=== PATIENT | male | born 1995 | race Two or more races ===

== ENCOUNTER 2016-09-17 07:15 | Emergency (ER) | payer OTHER ==
--- NOTE | 2016-09-17 07:44 | ER Document Report ---
ED GI/ - General Mode of Arrival: Ambulatory Information source: Patient TRAVEL OUTSIDE OF THE [place] IN LAST 30 DAYS: No - HPI Patient complains to provider of: Testicular pain Onset: Other - 2-3 days ago Context: Lifting Associated symptoms: Other - see notes above - General Chief Complaint: Testicular Pain Stated Complaint: TESTICAL PAIN Time Seen by Provider: 09/17/16 07:39 Notes: 21 year old male with no history of testicular problems presents to the ED complaining of testicular pain that started 2-3 days ago. Patient reports that he recently started working out after 1 year away and states that he was squatting a few days ago prior to the pain starting. He states that there was no discomfort or pain while squatting, but developed pain later in the day. Patient reports the pain is exacerbated with walking. Patient is concerned he has a hernia. Patient denies burning with urination or hematuria, but states his testicles look swollen. (MIHAI WOODWARD) - Related Data Allergies/Adverse Reactions: No Known Allergies Allergy (Verified 09/17/16 07:31) Past Medical History - General Information source: Patient - Social History Smoking Status: Unknown if Ever Smoked Family History: Reviewed & Not Pertinent Patient has suicidal ideation: No Patient has homicidal ideation: No Renal/ Medical History: Denies: Hx Peritoneal Dialysis Surgical Hx: Negative - Immunizations Hx Diphtheria, Pertussis, Tetanus Vaccination: No Review of Systems - Review of Systems Constitutional: No symptoms reported EENT: No symptoms reported Cardiovascular: No symptoms reported Respiratory: No symptoms reported Gastrointestinal: No symptoms reported Genitourinary: No symptoms reported. denies: Burning, Dysuria, Hematuria Male Genitourinary: See HPI, Testicular pain Musculoskeletal: No symptoms reported Skin: No symptoms reported Hematologic/Lymphatic: No symptoms reported Neurological/Psychological: No symptoms reported -: Yes All other systems reviewed and negative Physical Exam - General General appearance: Alert In distress: None - HEENT Head: Normocephalic, Atraumatic Eyes: Normal Extraocular movements intact: Yes Pupils: PERRL - Respiratory Respiratory status: No respiratory distress Breath sounds: Normal - Cardiovascular Rhythm: Regular Heart sounds: Normal auscultation - Abdominal Inspection: Normal Distension: No distension Tenderness: Nontender - Genitourinary Tenderness: Testicle tender - left testicle is tender to palpate, Other - Back Back: Normal - Extremities General upper extremity: Normal inspection, Normal ROM General lower extremity: Normal inspection, Normal ROM, Normal weight bearing - Neurological Neuro grossly intact: Yes Cognition: Normal Orientation: AAOx4 Priya Coma Scale Eye Opening: Spontaneous Central Coma Scale Verbal: Oriented Central Coma Scale Motor: Obeys Commands Central Coma Scale Total: 15 Speech: Normal - Psychological Associated symptoms: Normal affect, Normal mood - Skin Skin Temperature: Warm Skin Moisture: Dry Skin Color: Normal - Vital signs Vitals: Temp Pulse Resp BP Pulse Ox 98.7 F 84 16 130/76 H 100 09/17/16 07:33 09/17/16 07:33 09/17/16 07:33 09/17/16 07:33 09/17/16 07:33 - Genitourinary Notes: no obvious mass or hernia is palpated. (MIHAI WOODWARD) Discharge - Discharge Clinical Impression: Epididymitis, testicular mass Condition: Stable Disposition: HOME, SELF-CARE Instructions: Epididymitis ([facility]) Prescriptions: Doxycycline Hyclate 100 mg PO BID #14 capsule Hydrocodone/Acetaminophen [[place] 5-325 mg Tablet] 1 tab PO QID PRN #12 tablet PRN Reason: Referrals: [facility] [Provider Group] (Call for an appointment today to be seen in follow-up in 2-3 days I have also given your primary care physician a call for follow-up in 2-3 days return to the emergency department sooner for increasing worsening or new symptoms) [facility] [Provider Group] - Follow up in 3-5 days Scribe Attestation: 09/17/16 11:21 I personally performed the services described in the documentation reviewed the documentation recorded by my scribe in my presence and it accurately and completely records my words and actions (EDER LLOYD) Scribe Documentation - Scribe Written by Eugenia:: Eugenia Caceres, 09/17/2016 [id number] acting as scribe for :: Greg
[2016-09-17] MEDS ORDERED: OXYCODONE-ACETAMINOPHEN 5-325 MG TABLET PO ONE (11:29)
[2016-09-17 11:53] VITALS: BP 135/79
== END 2016-09-17 11:54 | disposition home or self-care (01) ==
LOC: ER 07:15
DX: N45.1 Epididymitis (principal); N50.89 Other specified disorders of the male genital organs
CPT/HCPCS: 76870; 93976; 99284

== ENCOUNTER 2019-02-23 03:16 | Emergency (ER) | payer MEDICAID, OTHER ==
[2019-02-23] MEDS ORDERED: LIDOCAINE 1% INJ-PF (10 MG/ML) 30 ML SDV INJ ONE (05:55)
--- NOTE | 2019-02-23 05:57 | ER Document Report ---
HPI - HPI Time Seen by Provider: 02/23/19 05:48 Pain Level: 2 Context: Patient is a 23-year-old male that comes to the emergency department for chief complaint of tenderness to the top right buttock area. He states the area looks red and swollen. This is been worsening over the past 2 days. Patient states he has had this 3 times before and it has always drained on its own or with squeezing in the past but it was not draining this time. He denies fever/chills, nausea/vomiting, denies any other complaints. He denies any daily medications, denies IV drug abuse, denies any past medical history otherwise. Past Medical History - General Information source: Patient - Social History Smoking Status: Current Every Day Smoker Frequency of alcohol use: None Drug Abuse: None Lives with: Family Family History: Reviewed & Not Pertinent Patient has suicidal ideation: No Patient has homicidal ideation: No Pulmonary Medical History: Reports: Hx Asthma Renal/ Medical History: Denies: Hx Peritoneal Dialysis Surgical Hx: Negative - Immunizations Immunizations up to date: Yes Hx Diphtheria, Pertussis, Tetanus Vaccination: Yes Vertical Provider Document - CONSTITUTIONAL General Appearance: WD/WN, No Apparent Distress - INFECTION CONTROL TRAVEL OUTSIDE OF THE [place] IN LAST 30 DAYS: No - HEENT HEENT: Atraumatic, Normocephalic - NECK Neck: Normal Inspection - RESPIRATORY Respiratory: Breath Sounds Normal, No Respiratory Distress - CARDIOVASCULAR Cardiovascular: Regular Rate, Regular Rhythm - GI/ABDOMEN Gastrointestinal: Abdomen Soft, Abdomen Non-Tender - REPRODUCTIVE Male Genitalia: Normal Inspection - BACK Back: Normal Inspection - MUSCULOSKELETAL/EXTREMETIES Musculoskeletal/Extremeties: MAEW, FROM, Non-Tender - NEURO Level of Consciousness: Awake, Alert, Appropriate - DERM Integumentary: Warm, Dry, Abscess - Right sided pilonidal cyst abscess with indurated area and a fluctuant head. negative: Rash Course - Re-evaluation Re-evalutation: Patient with obvious pilonidal cyst abscess. This was cleaned, drained, patient placed on antibiotics. Discussed the care, surgical clinic follow-up, return precautions. Patient states understanding. - Vital Signs Vital signs: Temp Pulse Resp BP Pulse Ox 98.8 F 92 14 113/62 100 02/23/19 03:22 02/23/19 03:22 02/23/19 03:22 02/23/19 03:22 02/23/19 03:22 Procedures - Incision and Drainage Right upper gluteal cleft Type: Simple Anesthetic type: 1% Lidocaine mL's of anesthetic: 6 Blade size: 11 I&D procedure: Shurclens applied, Sterile dressing applied Incision Method: Incision made by scalpel Amount/type of drainage: Moderate amount of mixed bloody purulent drainage Discharge - Discharge Clinical Impression: Abscess Condition: Stable Disposition: HOME, SELF-CARE Additional Instructions: Your evaluation showed a pilonidal cyst abscess. This was opened and drained. Take antibiotics as prescribed to completion. Keep the area clean, clean with soap and water, keep absorbing dressing over the area. This can recur, if it does follow-up with the listed referral at the surgical clinic to have this managed definitively. Return if you worsen including developing/spreading redness, fever/chills, or any other concerning or worsening symptoms. Prescriptions: Sulfamethoxazole/Trimethoprim [Bactrim Ds Tablet] 1 each PO BID #14 tablet Referrals: [facility] [Provider Group] - Follow up as needed
[2019-02-23] MEDS ORDERED: SULFAMETHOXAZOLE/TRIMETHOPRIM 800-160 MG TABLET PO ONE (06:37)
[2019-02-23 06:45] VITALS: BP 110/73
== END 2019-02-23 06:50 | disposition home or self-care (01) ==
LOC: ER 03:16
DX: L05.01 Pilonidal cyst with abscess (principal); J45.909 Unspecified asthma, uncomplicated; F17.200 Nicotine dependence, unspecified, uncomplicated
CPT/HCPCS: 10080; A6266; J3490; 99283